=== PATIENT | male | born 1990 | race Two or more races ===

== ENCOUNTER 2017-05-09 02:32 | Emergency (ER) | payer SELFPAY ==
[~2017-05-09] VITALS: Ht 170.2 cm; Wt 65.8 kg
[2017-05-09] MEDS ORDERED: diphenhydrAMINE HCL 50 MG/ML VIAL ONE (02:35)
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
[2017-05-09] MEDS ORDERED: LORAZEPAM INJ 2 MG/ML VIAL ONE (02:36)
[2017-05-09] MEDS ORDERED: HALOPERIDOL LACTATE INJ 5 MG/ML VIAL ONE (02:36)
--- NOTE | 2017-05-09 02:37 | NUR ---
AT BEDSIDE FOR EVAL.
[2017-05-09] MEDS: LORAZEPAM INJ 2 MG/ML VIAL IM ONE (02:55)
[2017-05-09] MEDS: diphenhydrAMINE HCL 50 MG/ML VIAL IM ONE (02:55)
[2017-05-09] MEDS: HALOPERIDOL LACTATE INJ 5 MG/ML VIAL IM ONE (02:55)
--- NOTE | 2017-05-09 03:06 | NUR ---
LAB AT BEDSIDE FOR DRAW.
[2017-05-09 03:21] LABS: BASOPHILS % (AUTO) 0.3 % (0.0-2.0); EOSINOPHILS % (AUTO) 0.6 % (0.0-6.0); HEMATOCRIT 42 % (39-51); HEMOGLOBIN 14.3 g/dL (13.5-17.5); LYMPHOCYTES # (AUTO) 1.8 /CMM (0.8-4.8); LYMPHOCYTES % (AUTO) 33.3 % (20.0-44.0); MEAN CORPUSCULAR HEMOGLOBIN 31 PG (26.0-33.0); MEAN CORPUSCULAR HGB CONC 34 g/dl (31.0-36.0); MEAN CORPUSCULAR VOLUME 90 fL (80-96); MONOCYTES # (AUTO) 0.5 /CMM (0.1-1.30); MONOCYTES % (AUTO) 8.2 % (2.0-12.0); NEUTROPHILS # (AUTO) 3.2 /CMM (1.8-8.9); NEUTROPHILS % (AUTO) 57.6 % (43.0-81.0); PLATELET COUNT (AUTO) 203 /CMM (150-450); RDW COEFFICIENT OF VARIATION 12.3 (11.5-15.0); RED BLOOD CELL COUNT(AUTO) 4.63 MIL/uL (4.5-6.0); WHITE BLOOD COUNT (AUTO) 5.5 K/uL (4.3-11.0)
--- NOTE | 2017-05-09 03:39 | NUR ---
URINE SPECIMEN OBTAINED AND SENT TO THE LAB.
[2017-05-09 03:41] LABS: ALANINE AMINOTRANSFERASE 26 U/L (12-78); ALBUMIN 4.6 g/dL (3.4-5.0); ALCOHOL, BLOOD 224 mg/dL (0-0); ALKALINE PHOSPHATASE 64 U/L (46-116); ASPARTATE AMINOTRANSFERASE 19 U/L (15-37); BILIRUBIN,DIRECT 0.1 mg/dL (0.0-0.2); BILIRUBIN,TOTAL 0.4 mg/dL (0.2-1.0); CALCIUM, SERUM 8.7 mg/dL (8.5-10.1); CARBON DIOXIDE 18 mmol/L (21-32); CHLORIDE 106 mmol/L (98-107); CREATININE 1.1 mg/dL (0.6-1.3); GLUCOSE 116 mg/dL (74-106); SODIUM SERUM 145 mmol/L (136-145); TOTAL PROTEIN, SERUM 7.7 g/dL (6.4-8.2); UREA NITROGEN, BLOOD 7 mg/dL (7-18)
[2017-05-09 03:44] LABS: ACETAMINOPHEN < 2 ug/ml (10-30); SALICYLATE 2.6 mg/dL (2.8-20.0)
[2017-05-09 03:49] LABS: APPEARANCE,URINE CLEAR (CLEAR); BILIRUBIN,URINE NEGATIVE (NEGATIVE); BLOOD, URINE NEGATIVE Ery/uL (NEGATIVE); KETONES,URINE NEGATIVE (NEGATIVE); LEUKOCYTE ESTERASE ,URINE NEGATIVE (NEGATIVE); NITRITE, URINE NEGATIVE (NEGATIVE); PROTEIN,URINE NEGATIVE (NEGATIVE); UGLUCOSE NEGATIVE (NEGATIVE); UROBILINOGEN,URINE 0.2 EU/dL (0.2)
[2017-05-09 03:51] LABS: COLOR,URINE STRAW (YELLOW)
--- NOTE | 2017-05-09 05:33 | NUR ---
PT RESTING QUIETLY, VSS. PT AROUSES EASILY TO VOICE.
--- NOTE | 2017-05-09 07:37 | NUR ---
PT VITAL SIGNS TAKEN PT SLEEPING BUT AROUSABLE UPON COMMAND. ON [employer] RESERVES SATURATION 9999% BREATHING EVEN NO DISTRESS NOTED AT THIS TIME PENDING DISCHARGE PER MD.
--- NOTE | 2017-05-09 09:18 | NUR ---
Patient discharged to home in stable condition. Written and verbal after care instructions given. Patient verbalizes understanding of instruction.pt ambulator able to dress self walks with steady gait alert and oriented x 4
[2017-05-09 09:19] VITALS: BP 102/60
== END 2017-05-09 09:20 | disposition home or self-care (01) ==
LOC: ER 02:34
DX: F12.10 Cannabis abuse, uncomplicated (principal); F19.10 Other psychoactive substance abuse, uncomplicated
CPT/HCPCS: 36415; 80048; 80076; 80305; 80329; 81001; 85025; 96372 ×3; 99284; A4606; G0480 ×2; J1200; J1630; J2060; Z7610; 81000-TC